=== PATIENT | male | born 1985 | race Two or more races ===

== ENCOUNTER 2016-07-06 00:49 | Emergency (ER) | payer OTHER ==
--- NOTE | ~2016-07-06 | ER ---
PATIENT'S NAME: A[facility] AGE: 30 Y [address] ROOM: [place] [address] LOCATION: [facility] ADMIT DATE: 07/06/2016 ER/Outpatient Report DISCHARGE DATE: 07/06/2016 FAMILY PHYSICIAN: Peg Serrato MD ATTENDING PHYSICIAN: Amandeep Barrera Admission date and time were documented on medical record. I saw the patient at 0100 hours. CHIEF COMPLAINT: Racing heart, sweats, neck stiffness, chills, hot flashes. HISTORY OF PRESENT ILLNESS: The patient is a 30-year-old male, who woke up this morning with his heart racing. He is diaphoretic. Has neck stiffness and soreness. He is feeling hot and chilled. Presented to the emergency room for evaluation. On arrival, the patient was awake, alert, responsive. He was not diaphoretic, he really did not have any shortness of breath or chest pain. Just had the tenseness and soreness across his shoulders and into his neck. Denies any recent cold, coughs, flus, fever, chills, or sweats. No fall or trauma. Had a little bit of dizziness and lightheadedness, but no syncope or near syncope. No headache. No eyes, ears, nose, throat, neck, or spine pain, just neck stiffness. No abdominal pain, nausea, vomiting, diarrhea, urinary symptoms. No joint swelling redness. No skin eruptions or rash. No history of endocrine problems, neuro changes, or psych issues. HOME MEDICATIONS: None. ALLERGIES: NONE. SOCIAL HISTORY: Nonsmoker. Occasional intake of alcohol. SIGNIFICANT PAST MEDICAL HISTORY: Negative. OPERATIONS: None. REVIEW OF SYSTEMS: All systems reviewed by me are negative with the exception of those discussed in the history of present illness. PATIENT'S NAME: AURA [facility] AGE: 30 Y [address] ROOM: [place] [address] LOCATION: [facility] ADMIT DATE: 07/06/2016 ER/Outpatient Report DISCHARGE DATE: 07/06/2016 FAMILY PHYSICIAN: Peg Serrato MD ATTENDING PHYSICIAN: Amandeep Barrera PHYSICAL EXAMINATION: VITAL SIGNS: Temperature 36.5 Celsius, pulse 91, respirations 18, blood pressure 143/90, O2 saturation on room air is 97%. HEAD: Normocephalic. No abrasion, contusion, laceration, swelling to the scalp or face. EYES: Extraocular muscles intact. PERRL. EARS: Clear TMs bilaterally. NOSE AND THROAT: Clear. Mucous membranes moist. NECK: No nuchal rigidity. No findings of adenopathy. Tenderness and tightness across the trapezius muscle distribution. Base of the skull over the top of the shoulders. SPINE: Negative. LUNGS: Clear. HEART: Regular. No chest wall or ribcage pain to palpation. ABDOMEN: Soft, nondistended, nontender. Good bowel tones. No organomegaly or abnormal mass palpable. No CVA tenderness. PELVIS: Stable. EXTREMITIES: Moves all 4 extremities. No peripheral edema, cyanosis, or deformity. NEUROVASCULAR: Intact. SKIN: Clear. No skin eruptions or rash. DIAGNOSTIC DATA: Chest x-ray showed no acute infiltrate or changes. We will review x-ray with radiologist. EKG showed sinus rhythm. No acute ST elevation, ischemic change, or arrhythmia. LABORATORY DATA: White count was 8200, 65 segs, 25 lymphs, 7 monos, 2 eos, 1 baso. Hemoglobin was 16.2 with hematocrit 45.4, platelet count 206,000. PTT was 28, pro-time was 10.1, INR 1.0. Magnesium was 2. Medical blood alcohol is less than 0.01. Point of care cardiac enzymes were normal. CPK is 117. CRP was less than 0.29. Thyroid tests were normal. CMS was normal except for a slight low potassium 3.5, slightly low CO2 content of 21, elevated glucose 133, elevated AST of 62, and ALT 128. Venous pH was 7.39. IMPRESSION: Stress related physical problems including tightness across the shoulders, anxiety, fast heart rate, diaphoresis, waking up in the middle of the night, agitated. He is stressed that his family has gone from 6 months, he is stressed at work, stressed being alone. No abnormalities on his workup as far as his EKG, chest x-ray, and blood studies. PLAN: The patient was discharged from the emergency department. Observation. [facility] AGE[facility] 30 Y [address] ROOM: [place] [address] LOCATION: [facility] ADMIT DATE: 07/06/2016 ER/Outpatient Report DISCHARGE DATE: 07/06/2016 FAMILY PHYSICIAN: Peg Serrato MD ATTENDING PHYSICIAN: Amandeep Barrera Activity as tolerated. Good rest. Fluids and diet as tolerated. Ativan 1 mg 3 times a day p.r.n., anxiety, stress. Follow up with personal physician as needed. I had a long discussion with the patient concerning my findings and recommendations, he understands. MD KAMILLE PHELPS/modl /[id number] d: 07/06/16 0545 t: 07/08/16 1814, OUTPATIENT REPORT
[2016-07-06 01:30] LABS: BICARBONATE 23.6 mmol/L (18.0-23.0); PCO2 39 mmHg (35-45); PO2 122 mmHg (80-90)
[2016-07-06 01:31] LABS: BASOPHIL # 0.1 K/uL (0.0-0.2); BASOPHIL % 0.7 %; EOSINOPHIL # 0.2 K/uL (0.0-0.5); EOSINOPHIL % 2.4 %; HEMATOCRIT 45.4 % (37.0-53.0); HEMOGLOBIN 16.2 g/dL (12.0-17.0); IMMATURE GRANULOCYTE % 0.2 %; LYMPHOCYTE % 24.5 %; MCH 31.3 pg (27.0-34.0); MCHC 35.7 gm/dL (32.0-36.5); MCV 87.6 fl (83.0-98.0); MONOCYTE # 0.6 K/uL (0.0-1.0); MONOCYTE % 6.8 %; MPV 10.7 fl (9.4-12.4); NEUTROPHIL # (ANC) 5.4 K/uL (1.4-9.0); NEUTROPHIL % 65.4 %; NRBC % 0 /100WBC (0-0.00); PLATELET COUNT 206 K/uL (150-450); RBC 5.18 M/uL (4.00-6.00); RDW-CV 11.8 % (11.9-14.6); WBC 8.2 K/uL (4.0-11.0)
[2016-07-06 01:51] LABS: ALBUMIN 3.9 gm/dL (3.5-5.0); ALK PHOS 84 IU/L (33-138); ALT 128 IU/L (12-78); ANION GAP 15.5 (10.0-19.0); AST 62 IU/L (10-40); BLOOD UREA NITROGEN 14 mg/dL (6-24); CALCIUM 8.1 mg/dL (8.5-10.5); CHLORIDE 109 mMol/L (96-110); CO2 21 mMol/L (22-32); CPK 117 IU/L (35-332); CREATININE 1.1 mg/dL (0.6-1.3); ESTIMATED GFR (MDRD EQUATION) > 60; SODIUM 142 mMol/L (135-145); TOTAL BILIRUBIN 0.5 mg/dL (0.0-1.5); TOTAL PROTEIN 7.5 g/dL (6.0-8.4)
[2016-07-06 01:52] LABS: POTASSIUM 3.5 mMol/L (3.7-5.1)
[2016-07-06 01:59] LABS: PROTIME 10.1 SECONDS (9.6-11.1); PTT 28 SECONDS (25-32)
== END 2016-07-06 02:13 | disposition disaster alternative care site (69) ==
LOC: GMED 00:49
PROVIDERS: Emergency Medicine
DX: F41.9 Anxiety disorder, unspecified (principal); F43.9 Reaction to severe stress, unspecified; R61 Generalized hyperhidrosis
CPT/HCPCS: G0480